=== PATIENT | male | born 1965 | race Caucasian/White ===

== ENCOUNTER 2021-05-18 10:52 | Emergency (ER) | payer OTHER ==
[2021-05-18] MEDS ORDERED: Sodium Chloride 0.9% 1000 ML 1,000 ML IV SCH (11:00)
[2021-05-18] MEDS ORDERED: NARCAN 2 MG/2 ML IV ONE (11:01)
[2021-05-18] MEDS ORDERED: Versed 50 MG/ 10 Ml MDV*** 50 MG in Sodium Chloride 0.9% 250 ML 240 ML IV PRN (11:02)
[2021-05-18] MEDS ORDERED: Sodium Chloride 0.9% 1000 ML 1,000 ML ONE ×2 (11:05→11:33)
[2021-05-18] MEDS ORDERED: Sodium Chloride 0.9% 1000 ML 1,000 ML IV STA (11:05)
[2021-05-18 11:13] LABS: Hematocrit 13.8 % (42-50); Mean Cell Volume 80.7 fl (78-100); Mean Corpuscular Hemoglobin 26.9 pg (26-32); Mean Corpuscular Hgb Concent. 33.3 g/dl (32-36); Mean Platelet Volume 8.2 fl (7.5-11.0); Platelet Count 478 K/mm3 (150-450); Red Cell Distribution Width 14.5 % (11.5-14.0); White Blood Count 13.3 K/mm3 (4.0-10.5)
[2021-05-18] MEDS ORDERED: SODIUM BICARBONATE 50 MEQ/50 ML ABBOJECT IV ONE (11:16)
[2021-05-18 11:18] LABS: Hemoglobin 4.6 gm/dl (12.5-18.0)
[2021-05-18 11:19] LABS: VBG BASE EXCESS -25.7 (-2.0-2.0); VBG CARBOXYHEMOGLOBIN 3.6 % T HGB (0.0-6.9); VBG HCO3- 5.6 meq/L (22-28); VBG O2 SATURATION 98.8 (95-100); VBG pH 6.94 (7.32-7.42)
[2021-05-18 11:19] LABS: Red Blood Count 1.71 M/mm3 (4.1-5.6)
[2021-05-18 11:20] LABS: VBG HEMOGLOBIN 4.9; VBG POTASSIUM 6.6 (3.5-5.1)
[2021-05-18 11:22] LABS: Appearance SLIGHTLY CLOUDY (CLEAR); Bilirubin NEGATIVE (NEGATIVE); Blood MODERATE Ery/ul (0-5); Epithelial Cells RARE /HPF (FEW); Glucose 50 mg/dL (NEGATIVE); Ketones NEGATIVE (NEGATIVE); Leukocyte Esterase NEGATIVE (NEGATIVE); Nitrite NEGATIVE (NEGATIVE); Protein,Urine Dip >=500 (Negative); Urobilinogen NEGATIVE mg/dL (0-1); WBC 0-2 /HPF (0-5)
[2021-05-18 11:23] LABS: ACETAMINOPHEN < 10 ug/ml (10-30); ALBUMIN 3.6 g/dL (3.5-5.0); ALKALINE PHOSPHATASE 74 U/L (38-126); CHLORIDE 107 mmol/L (98-107); Calcium 8.4 mg/dL (8.4-10.2); ETHYL ALCOHOL < 10 mg/dL (0-10); Glucose 80 mg/dL (74-106); SALICYLATE < 1.0 mg/dL (2-20); SGOT/AST 25 U/L (17-59); SGPT/ALT 16 U/L (0-50); SODIUM 137 mmol/L (137-145); Total Protein 7.5 g/dL (6.3-8.2)
[2021-05-18 11:32] LABS: Amphetamine,Urine NEGATIVE (NEGATIVE); Barbiturate,Urine NEGATIVE (NEGATIVE); Benzodiazepine,Urine NEGATIVE (NEGATIVE); Cocaine,Urine NEGATIVE (NEGATIVE); Methadone,Urine NEGATIVE (NEGATIVE); Opiate,Urine NEGATIVE (NEGATIVE); PCP,Urine NEGATIVE (NEGATIVE); THC,Urine NEGATIVE (NEGATIVE)
--- NOTE | 2021-05-18 11:33 | XRAY ---
Indication: Endotracheal tube placement. Comparison: None Portable chest demonstrates endotracheal tube tip 6 cm above sadi and NGT tip in proximal stomach just past GE junction. Lungs demonstrate prominent bilateral interstitial opacities and small left base effusion/atelectasis. Heart not enlarged. Bony thorax intact with mild degenerative changes.
[2021-05-18 11:38] LABS: Potassium 6.2 mmol/L (3.5-5.1)
[2021-05-18 11:39] LABS: BLOOD UREA NITROGEN 191 mg/dL (9-20); Carbon Dioxide < 5 mmol/L (22-30); Creatinine 1 27.24 mg/dL (0.66-1.25); EST GLOMERULAR FILTRATION RATE 1.8 ML/MIN
[2021-05-18 11:43] LABS: INR 1.14 (0.8-3.0); PROTIME 13.5 SECONDS (9.4-12.5)
[2021-05-18 11:45] LABS: PTT 29.1 SECONDS (25.1-36.5)
--- NOTE | 2021-05-18 11:53 | XRAY ---
Indication: Unresponsive. Multiple contiguous images obtained through the head without contrast. Comparison: None Age-appropriate global atrophy with mild periventricular degenerative micro-ischemia bilaterally. Left mid centrum semiovale demonstrates 5 x 13 mm hypodensity without mass effect favoring old infarct. No acute intracranial hemorrhage, abnormal extra-axial fluid collection, or mass effect. Fourth ventricle is midline without hydrocephalus. Bony calvarium intact. Mild mucosal thickening both ethmoid sinuses. Mastoid air cells are clear. Impression: 1. Normal aging atrophy and degenerative micro-ischemia. 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 2. No acute intracranial abnormalities. 3. Incidental paranasal sinus disease.
[2021-05-18 12:18] VITALS: O2SAT 100
[2021-05-18 13:20] LABS: ABO TYPING A; Antibody Screen NEGATIVE (NEGATIVE); RH TYPING POSITIVE
[2021-05-18 13:22] LABS: CROSS MATCH (PRBC) COMPATIBLE (COMPATIBLE)
[2021-05-18] MEDS ORDERED: Calcium Gluconate 10% 1000 MG IV ONE ×2 (13:58→14:49)
[2021-05-18] MEDS ORDERED: HUMULIN R IV ONE (14:00)
[2021-05-18] MEDS ORDERED: D50W 50 ml Abboject IV ONE ×2 (14:01→14:51)
--- NOTE | 2021-05-18 14:05 | XRAY ---
Indication: Unresponsive anemia. Multiple contiguous axial images obtained through the abdomen and pelvis without contrast. Comparison: None Respiration artifact and beam artifact from patient arms limits exam. Lung bases demonstrates incompletely visualized small left and tiny right effusions with compressive atelectasis. Indeterminant 7 mm right lower lobe noncalcified nodule. Heart borderline enlarged. NG tube tip at the GE junction. Stomach is moderately distended with air/fluid. Noncontrasted stomach and bowel loops appear nonobstructed. Normal appendix. Urinary bladder is near empty with Wheatley balloon catheter in situ. Remaining liver, gallbladder, pancreas, spleen, adrenal glands, kidneys, and ureters are unremarkable for noncontrast exam. Minimal aortoiliac calcifications without AAA. Osseous structures intact with mild/moderate multilevel thoracolumbar degenerative spondylosis and 7-8mm L4 spondylolisthesis. Impression: 1. Respiration and beam artifact. 2. Small left and tiny right lung base effusions with compressive atelectasis. 3. NG tube tip at GE junction and Wheatley balloon catheter in urinary bladder. 4. Multilevel degenerative spondylosis and grade 1 L4 spondylolisthesis. 5. Indeterminant 1 cm right lung base noncalcified nodule. 6. Remaining CT abdomen/pelvis without contrast exam is negative.
[2021-05-18 14:29] LABS: COVID AG -BINAX NOW RAPID TEST NEGATIVE (NEGATIVE)
--- NOTE | 2021-05-18 14:43 | ERPHSYRPT ---
- History of Present Illness Time Seen by Provider: 05/18/21 11:05 Patient Subjective Stated Complaint: Unresponsive Triage Nursing Assessment: Patient arrived per EMS at 1051 per EMS and transferred to bed with assist of 4. Patient unresponsive with IGel in place being bagged per BVM. EMS was called out for difficulty of breathing to [facility]. 10:56 I gel pulled bagging per RT, 1057: Intubated 24 @ lip, 7.5 tube end tidal CO2 25. 1100: F/C placed; Placed on vent 500 tidal volume, 14 rate, 100% O2, 5 peep. Pupils 4 fixed and non reactive. Physician History: Patient is a 55-year-old male who presents by ambulance from the [facility] the initial call from the facility to EMS was that he was having trouble breathing when they arrived they were told he had had some seizure activity and stopped breathing and they were bagging him. He has a history of seizures. Other history is difficult to find. Allergies/Adverse Reactions: No Known Drug Allergies Allergy (Unverified 05/18/21 11:10) Hx Tetanus, Diphtheria Vaccination/Date Given: (unknown) Hx Influenza Vaccination/Date Given: (unknown) Hx Pneumococcal Vaccination/Date Given: (unknown) Immunizations Up to Date: (unknown) Travel Risk - International Travel Have you traveled outside of the country in past 3 weeks: No - Coronavirus Screening Symptoms: Shortness of Breath - Vaccine Status Have you recieved a Covid-19 vaccination: Yes Film Spooler: [place] - Vaccination Dates Date of 2cond Vaccination (if applicable): 01/10/2021 - Review of Systems All Other Systems: Unable due to condition - Past Medical History Other Medical History: unknown medical hx; poor historian - Past Surgical History Other Surgical History: unknown surgeries; poor historian - Social History Smoking Status: Unknown if ever smoked Exposure to second hand smoke: No Patient Lives Alone: No (Jail) - Nursing Vital Signs Nursing Vital Signs: Initial Vital Signs Pulse Rate 102 H 05/18/21 11:00 Blood Pressure 103/62 05/18/21 11:00 O2 Sat by Pulse Oximetry 100 05/18/21 11:00 Pain Scale Pain Intensity 0 - Physical Exam General Appearance: other (Patient is totally unresponsive Tete Coma Scale of 3) Eye Exam: other (Pupils are basically 4 mm and minimally reactive extraocular motion is intact) Ears, Nose, Throat Exam: normal ENT inspection, TMs normal, pharynx normal, moist mucous membranes, other (Patient is intubated and being ventilated) Neck Exam: normal inspection, non-tender, supple, full range of motion Respiratory Exam: normal breath sounds, lungs clear, No respiratory distress Cardiovascular Exam: regular rate/rhythm, normal heart sounds, normal peripheral pulses Back Exam: normal inspection, normal range of motion, No CVA tenderness, No vertebral tenderness Extremity Exam: normal inspection, normal range of motion, pelvis stable Neurologic Exam: other (Patient is totally unresponsive) SpO2 Interpretation: airway management int. SpO2: 100 O2 Delivery: Ventilator - Course Nursing assessment & vital signs reviewed: Yes - Radiology Exams Chest X-ray Interpretation: Interpreted by me (Chest film indicates proper placement of the ET tube and some faint opacities in the lungs interstitial tissue in the lower lungs.) - CT Exams Head CT Interpretation: Other (CT shows only chronic changes and age-related changes) Abdomen/Pelvis CT Interpretation: Tele-radiologist Report Ordered Tests: Active Orders 24 hr Category Date Time Status CO2 Monitoring STAT Care 05/18/21 11:34 Active Ginger Farmer STAT Care 05/18/21 10:55 Active EKG-ER Only STAT Care 05/18/21 10:54 Active IV Insertion STAT Care 05/18/21 11:22 Active ABDOMEN AND PELVIS W/0 CONTRAS [CT] Stat Exams 05/18/21 12:07 Completed CHEST 1 VIEW (PORTABLE) Stat Exams 05/18/21 10:58 Completed HEAD WITHOUT CONTRAST [CT] Stat Exams 05/18/21 10:55 Completed ACETAMINOPHEN Stat Lab 05/18/21 11:00 Completed BLOOD CULTURE Stat Lab 05/18/21 11:00 Ordered BMP/RENAL PROFILE Stat Lab 05/18/21 14:34 Ordered CBC W DIFF Stat Lab 05/18/21 11:00 Completed CMP Stat Lab 05/18/21 11:00 Completed CULTURE,URINE Stat Lab 05/18/21 11:08 Ordered D-DIMER QUANTITATIVE Stat Lab 05/18/21 11:00 Completed ETHYL ALCOHOL Stat Lab 05/18/21 11:00 Completed Lactic Acid Urgent Lab 05/18/21 11:18 Completed Manual Differential NC Stat Lab 05/18/21 11:00 Completed PROTIME WITH INR Stat Lab 05/18/21 11:25 Completed PTT Stat Lab 05/18/21 11:25 Completed SALICYLATE Stat Lab 05/18/21 11:00 Completed UA W/RFX UR CULTURE Stat Lab 05/18/21 11:08 Completed Urine Triage Profile Stat Lab 05/18/21 11:08 Completed VBG [VENOUS BLOOD GAS] Stat Lab 05/18/21 11:17 Completed Intubate Patient STAT RT 05/18/21 11:34 Active Respiratory Therapy Assessment DAILY RT 05/18/21 11:34 Active Ventilator Management Q4H RT 05/18/21 11:34 Active Medication Summary Generic Name Dose Route Start Last Admin Trade Name Freq PRN Reason Stop Dose Admin Sodium Chloride 1,000 mls @ 100 mls/hr 05/18/21 11:00 05/18/21 11:34 Sodium Chloride 0.9% 1000 Ml IV 06/17/21 10:59 100 mls/hr .Q10H MARY Administration Midazolam HCl 50 mg/ Sodium 250 mls @ 10 mls/hr 05/18/21 11:02 05/18/21 11:05 Chloride IV 06/17/21 11:01 2 mg/hr .Q24H PRN 10 mls/hr SEDATION Administration Protocol 2 MG/HR Discontinued Medications Generic Name Dose Route Start Last Admin Trade Name Freq PRN Reason Stop Dose Admin Calcium Gluconate 1,000 mg 05/18/21 13:58 Calcium Gluconate 10% 1000 Mg IV 05/18/21 13:59 STAT ONE Dextrose 50 ml 05/18/21 14:01 D50w 50 Ml Abboject IV 05/18/21 14:02 STAT ONE Sodium Chloride 1,000 mls @ 999 mls/hr 05/18/21 11:05 05/18/21 12:19 Sodium Chloride 0.9% 1000 Ml IV 05/18/21 12:05 Infused .Q1H1M STA Infusion Insulin Human Regular 10 unit 05/18/21 14:00 Humulin R IV 05/18/21 14:01 STAT ONE Naloxone HCl 2 mg 05/18/21 11:01 05/18/21 11:03 Narcan 2 Mg/2 Ml IV 05/18/21 11:02 2 mg STAT ONE Administration Sodium Bicarbonate 50 meq 05/18/21 11:16 05/18/21 11:19 Sodium Bicarbonate 50 Meq/50 Ml Abboject IV 05/18/21 11:17 50 meq STAT ONE Administration Lab/Rad Data: Laboratory Result Diagrams 05/18/21 11:00 05/18/21 11:00 Laboratory Results 05/18/21 05/18/21 05/18/21 Range/Units 14:05 11:25 11:25 WBC (4.0-10.5) K/mm3 RBC (4.1-5.6) M/mm3 Hgb (12.5-18.0) gm/dl Hct (42-50) % MCV (78-100) fl MCH (26-32) pg MCHC (32-36) g/dl RDW (11.5-14.0) % Plt Count (150-450) K/mm3 MPV (7.5-11.0) fl PT (9.4-12.5) SECONDS INR (0.8-3.0) APTT (25.1-36.5) SECONDS D-Dimer (215-500) ng/mL pO2/FiO2 Ratio % VBG pH (7.32-7.42) VBG pCO2 at Pat Temp (42-55) mm/Hg VBG pO2 at Pat Temp (25-40) mm/Hg VBG HCO3 (22-28) meq/L VBG O2 Sat ([place]) (95-100) VBG Base Excess (-2.0-2.0) VBG Hemoglobin VBG Carboxyhemoglobin (0.0-6.9) % T HGB POC Potassium (3.5-5.1) Sodium (137-145) mmol/L Potassium (3.5-5.1) mmol/L Chloride (98-107) mmol/L Carbon Dioxide (22-30) mmol/L BUN (9-20) mg/dL Creatinine (0.66-1.25) mg/dL Estimated GFR ML/MIN Glucose (74-106) mg/dL Lactic Acid (0.4-2.0) Calcium (8.4-10.2) mg/dL Total Bilirubin (0.2-1.3) mg/dL AST (17-59) U/L ALT (0-50) U/L Alkaline Phosphatase (38-126) U/L Serum Total Protein (6.3-8.2) g/dL Albumin (3.5-5.0) g/dL Urine Color (YELLOW) Urine Appearance (CLEAR) Urine pH (5-6) Ur Specific [place] (1.005-1.025) Urine Protein (Negative) Urine Ketones (NEGATIVE) Urine Blood (0-5) [place]/ul Urine Nitrite (NEGATIVE) Urine Bilirubin (NEGATIVE) Urine Urobilinogen (0-1) mg/dL Ur Leukocyte Esterase (NEGATIVE) Urine WBC (Auto) (0-5) /HPF Urine RBC (Auto) (0-2) /HPF U Epithel Cells (Auto) (FEW) /HPF Urine Bacteria (Auto) (NEGATIVE) /HPF Urine Culture Reflexed (NO) Urine Glucose (NEGATIVE) mg/dL Salicylates (2-20) mg/dL Urine Opiates Level (NEGATIVE) Ur Methadone (NEGATIVE) Acetaminophen (10-30) ug/ml Urine Barbiturates (NEGATIVE) Ur Phencyclidine (PCP) (NEGATIVE) Urine Amphetamine (NEGATIVE) U Benzodiazepine Level (NEGATIVE) Urine Cocaine (NEGATIVE) Urine Marijuana (THC) (NEGATIVE) Ethyl Alcohol (0-10) mg/dL SARS-CoV-2 Ag (Rapid) NEGATIVE (NEGATIVE) ABO Group Rh Factor Antibody Screen (NEGATIVE) Crossmatch COMPATIBLE COMPATIBLE (COMPATIBLE) 05/18/21 05/18/21 05/18/21 Range/Units 11:25 11:25 11:25 WBC (4.0-10.5) K/mm3 RBC (4.1-5.6) M/mm3 Hgb (12.5-18.0) gm/dl Hct (42-50) % MCV (78-100) fl MCH (26-32) pg MCHC (32-36) g/dl RDW (11.5-14.0) % Plt Count (150-450) K/mm3 MPV (7.5-11.0) fl PT (9.4-12.5) SECONDS INR (0.8-3.0) APTT (25.1-36.5) SECONDS D-Dimer (215-500) ng/mL pO2/FiO2 Ratio % VBG pH (7.32-7.42) VBG pCO2 at Pat Temp (42-55) mm/Hg VBG pO2 at Pat Temp (25-40) mm/Hg VBG HCO3 (22-28) meq/L VBG O2 Sat ([place]) (95-100) VBG Base Excess (-2.0-2.0) VBG Hemoglobin VBG Carboxyhemoglobin (0.0-6.9) % T HGB POC Potassium (3.5-5.1) Sodium (137-145) mmol/L Potassium (3.5-5.1) mmol/L Chloride (98-107) mmol/L Carbon Dioxide (22-30) mmol/L BUN (9-20) mg/dL Creatinine (0.66-1.25) mg/dL Estimated GFR ML/MIN Glucose (74-106) mg/dL Lactic Acid (0.4-2.0) Calcium (8.4-10.2) mg/dL Total Bilirubin (0.2-1.3) mg/dL AST (17-59) U/L ALT (0-50) U/L Alkaline Phosphatase (38-126) U/L Serum Total Protein (6.3-8.2) g/dL Albumin (3.5-5.0) g/dL Urine Color (YELLOW) Urine Appearance (CLEAR) Urine pH (5-6) Ur Specific [place] (1.005-1.025) Urine Protein (Negative) Urine Ketones (NEGATIVE) Urine Blood (0-5) [place]/ul Urine Nitrite (NEGATIVE) Urine Bilirubin (NEGATIVE) Urine Urobilinogen (0-1) mg/dL Ur Leukocyte Esterase (NEGATIVE) Urine WBC (Auto) (0-5) /HPF Urine RBC (Auto) (0-2) /HPF U Epithel Cells (Auto) (FEW) /HPF Urine Bacteria (Auto) (NEGATIVE) /HPF Urine Culture Reflexed (NO) Urine Glucose (NEGATIVE) mg/dL Salicylates (2-20) mg/dL Urine Opiates Level (NEGATIVE) Ur Methadone (NEGATIVE) Acetaminophen (10-30) ug/ml Urine Barbiturates (NEGATIVE) Ur Phencyclidine (PCP) (NEGATIVE) Urine Amphetamine (NEGATIVE) U Benzodiazepine Level (NEGATIVE) Urine Cocaine (NEGATIVE) Urine Marijuana (THC) (NEGATIVE) Ethyl Alcohol (0-10) mg/dL SARS-CoV-2 Ag (Rapid) (NEGATIVE) ABO Group Rh Factor Antibody Screen (NEGATIVE) Crossmatch COMPATIBLE COMPATIBLE COMPATIBLE (COMPATIBLE) 05/18/21 05/18/21 05/18/21 Range/Units 11:25 11:25 11:18 WBC (4.0-10.5) K/mm3 RBC (4.1-5.6) M/mm3 Hgb (12.5-18.0) gm/dl Hct (42-50) % MCV (78-100) fl MCH (26-32) pg MCHC (32-36) g/dl RDW (11.5-14.0) % Plt Count (150-450) K/mm3 MPV (7.5-11.0) fl PT 13.5 H (9.4-12.5) SECONDS INR 1.14 (0.8-3.0) APTT 29.1 (25.1-36.5) SECONDS D-Dimer (215-500) ng/mL pO2/FiO2 Ratio % VBG pH (7.32-7.42) VBG pCO2 at Pat Temp (42-55) mm/Hg VBG pO2 at Pat Temp (25-40) mm/Hg VBG HCO3 (22-28) meq/L VBG O2 Sat ([place]) (95-100) VBG Base Excess (-2.0-2.0) VBG Hemoglobin VBG Carboxyhemoglobin (0.0-6.9) % T HGB POC Potassium (3.5-5.1) Sodium (137-145) mmol/L Potassium (3.5-5.1) mmol/L Chloride (98-107) mmol/L Carbon Dioxide (22-30) mmol/L BUN (9-20) mg/dL Creatinine (0.66-1.25) mg/dL Estimated GFR ML/MIN Glucose (74-106) mg/dL Lactic Acid 2.9 H (0.4-2.0) Calcium (8.4-10.2) mg/dL Total Bilirubin (0.2-1.3) mg/dL AST (17-59) U/L ALT (0-50) U/L Alkaline Phosphatase (38-126) U/L Serum Total Protein (6.3-8.2) g/dL Albumin (3.5-5.0) g/dL Urine Color (YELLOW) Urine Appearance (CLEAR) Urine pH (5-6) Ur Specific [place] (1.005-1.025) Urine Protein (Negative) Urine Ketones (NEGATIVE) Urine Blood (0-5) [place]/ul Urine Nitrite (NEGATIVE) Urine Bilirubin (NEGATIVE) Urine Urobilinogen (0-1) mg/dL Ur Leukocyte Esterase (NEGATIVE) Urine WBC (Auto) (0-5) /HPF Urine RBC (Auto) (0-2) /HPF U Epithel Cells (Auto) (FEW) /HPF Urine Bacteria (Auto) (NEGATIVE) /HPF Urine Culture Reflexed (NO) Urine Glucose (NEGATIVE) mg/dL Salicylates (2-20) mg/dL Urine Opiates Level (NEGATIVE) Ur Methadone (NEGATIVE) Acetaminophen (10-30) ug/ml Urine Barbiturates (NEGATIVE) Ur Phencyclidine (PCP) (NEGATIVE) Urine Amphetamine (NEGATIVE) U Benzodiazepine Level (NEGATIVE) Urine Cocaine (NEGATIVE) Urine Marijuana (THC) (NEGATIVE) Ethyl Alcohol (0-10) mg/dL SARS-CoV-2 Ag (Rapid) (NEGATIVE) ABO Group A Rh Factor POSITIVE Antibody Screen NEGATIVE (NEGATIVE) Crossmatch COMPATIBLE (COMPATIBLE) 05/18/21 05/18/21 05/18/21 Range/Units 11:17 11:08 11:08 WBC (4.0-10.5) K/mm3 RBC (4.1-5.6) M/mm3 Hgb (12.5-18.0) gm/dl Hct (42-50) % MCV (78-100) fl MCH (26-32) pg MCHC (32-36) g/dl RDW (11.5-14.0) % Plt Count (150-450) K/mm3 MPV (7.5-11.0) fl PT (9.4-12.5) SECONDS INR (0.8-3.0) APTT (25.1-36.5) SECONDS D-Dimer (215-500) ng/mL pO2/FiO2 Ratio 100.0 % VBG pH 6.94 L* (7.32-7.42) VBG pCO2 at Pat Temp 26 L (42-55) mm/Hg VBG pO2 at Pat Temp 211 H (25-40) mm/Hg VBG HCO3 5.6 L* (22-28) meq/L VBG O2 Sat ([place]) 98.8 (95-100) VBG Base Excess -25.7 L (-2.0-2.0) VBG Hemoglobin 4.9 L* VBG Carboxyhemoglobin 3.6 (0.0-6.9) % T HGB POC Potassium 6.6 H* (3.5-5.1) Sodium (137-145) mmol/L Potassium (3.5-5.1) mmol/L Chloride (98-107) mmol/L Carbon Dioxide (22-30) mmol/L BUN (9-20) mg/dL Creatinine (0.66-1.25) mg/dL Estimated GFR ML/MIN Glucose (74-106) mg/dL Lactic Acid (0.4-2.0) Calcium (8.4-10.2) mg/dL Total Bilirubin (0.2-1.3) mg/dL AST (17-59) U/L ALT (0-50) U/L Alkaline Phosphatase (38-126) U/L Serum Total Protein (6.3-8.2) g/dL Albumin (3.5-5.0) g/dL Urine Color YELLOW (YELLOW) Urine Appearance SLIGHTLY CLOUDY (CLEAR) Urine pH 5.0 (5-6) Ur Specific [place] 1.010 (1.005-1.025) Urine Protein >=500 (Negative) Urine Ketones NEGATIVE (NEGATIVE) Urine Blood MODERATE (0-5) [place]/ul Urine Nitrite NEGATIVE (NEGATIVE) Urine Bilirubin NEGATIVE (NEGATIVE) Urine Urobilinogen NEGATIVE (0-1) mg/dL Ur Leukocyte Esterase NEGATIVE (NEGATIVE) Urine WBC (Auto) 0-2 (0-5) /HPF Urine RBC (Auto) 11-15 (0-2) /HPF U Epithel Cells (Auto) RARE (FEW) /HPF Urine Bacteria (Auto) NONE (NEGATIVE) /HPF Urine Culture Reflexed ALREADY ORDERED (NO) Urine Glucose 50 (NEGATIVE) mg/dL Salicylates (2-20) mg/dL Urine Opiates Level NEGATIVE (NEGATIVE) Ur Methadone NEGATIVE (NEGATIVE) Acetaminophen (10-30) ug/ml Urine Barbiturates NEGATIVE (NEGATIVE) Ur Phencyclidine (PCP) NEGATIVE (NEGATIVE) Urine Amphetamine NEGATIVE (NEGATIVE) U Benzodiazepine Level NEGATIVE (NEGATIVE) Urine Cocaine NEGATIVE (NEGATIVE) Urine Marijuana (THC) NEGATIVE (NEGATIVE) Ethyl Alcohol (0-10) mg/dL SARS-CoV-2 Ag (Rapid) (NEGATIVE) ABO Group Rh Factor Antibody Screen (NEGATIVE) Crossmatch (COMPATIBLE) 05/18/21 05/18/21 05/18/21 Range/Units 11:00 11:00 11:00 WBC 13.3 H (4.0-10.5) K/mm3 RBC 1.71 L* (4.1-5.6) M/mm3 Hgb 4.6 L* (12.5-18.0) gm/dl Hct 13.8 L (42-50) % MCV 80.7 (78-100) fl MCH 26.9 (26-32) pg MCHC 33.3 (32-36) g/dl RDW 14.5 H (11.5-14.0) % Plt Count 478 H (150-450) K/mm3 MPV 8.2 (7.5-11.0) fl PT (9.4-12.5) SECONDS INR (0.8-3.0) APTT (25.1-36.5) SECONDS D-Dimer 34819 H* (215-500) ng/mL pO2/FiO2 Ratio % VBG pH (7.32-7.42) VBG pCO2 at Pat Temp (42-55) mm/Hg VBG pO2 at Pat Temp (25-40) mm/Hg VBG HCO3 (22-28) meq/L VBG O2 Sat ([place]) (95-100) VBG Base Excess (-2.0-2.0) VBG Hemoglobin VBG Carboxyhemoglobin (0.0-6.9) % T HGB POC Potassium (3.5-5.1) Sodium 137 (137-145) mmol/L Potassium 6.2 H* (3.5-5.1) mmol/L Chloride 107 (98-107) mmol/L Carbon Dioxide < 5 L* (22-30) mmol/L BUN 191 H (9-20) mg/dL Creatinine 27.24 H (0.66-1.25) mg/dL Estimated GFR 1.8 ML/MIN Glucose 80 (74-106) mg/dL Lactic Acid (0.4-2.0) Calcium 8.4 (8.4-10.2) mg/dL Total Bilirubin 0.40 (0.2-1.3) mg/dL AST 25 (17-59) U/L ALT 16 (0-50) U/L Alkaline Phosphatase 74 (38-126) U/L Serum Total Protein 7.5 (6.3-8.2) g/dL Albumin 3.6 (3.5-5.0) g/dL Urine Color (YELLOW) Urine Appearance (CLEAR) Urine pH (5-6) Ur Specific [place] (1.005-1.025) Urine Protein (Negative) Urine Ketones (NEGATIVE) Urine Blood (0-5) [place]/ul Urine Nitrite (NEGATIVE) Urine Bilirubin (NEGATIVE) Urine Urobilinogen (0-1) mg/dL Ur Leukocyte Esterase (NEGATIVE) Urine WBC (Auto) (0-5) /HPF Urine RBC (Auto) (0-2) /HPF U Epithel Cells (Auto) (FEW) /HPF Urine Bacteria (Auto) (NEGATIVE) /HPF Urine Culture Reflexed (NO) Urine Glucose (NEGATIVE) mg/dL Salicylates < 1.0 L (2-20) mg/dL Urine Opiates Level (NEGATIVE) Ur Methadone (NEGATIVE) Acetaminophen < 10 L (10-30) ug/ml Urine Barbiturates (NEGATIVE) Ur Phencyclidine (PCP) (NEGATIVE) Urine Amphetamine (NEGATIVE) U Benzodiazepine Level (NEGATIVE) Urine Cocaine (NEGATIVE) Urine Marijuana (THC) (NEGATIVE) Ethyl Alcohol < 10 (0-10) mg/dL SARS-CoV-2 Ag (Rapid) (NEGATIVE) ABO Group Rh Factor Antibody Screen (NEGATIVE) Crossmatch (COMPATIBLE) - Progress Progress: unchanged - Departure Departure Disposition: Transfer Clinical Impression: Acute renal failure, Severe anemia, Acidosis, Hyperkalemia, Respiratory arrest Condition: Critical Critical Care Time: Yes Critical Care Time(excluding separately billable procedures): Critcal > 194 mins Referrals: DOCTOR,NO FAMILY [Primary Care Provider] - (Patient was referred to Dr. Roldan at [facility] who intervened to help us obtain an ICU bed which are included critical short supply.)
[2021-05-18] MEDS ORDERED: HUMULIN R ONE (14:50)
[2021-05-18 15:16] LABS: ALBUMIN 3.8 g/dL (3.5-5.0); ANION GAP 30.6 MEQ/L (5-15); Calcium 8.5 mg/dL (8.4-10.2); PHOSPHOROUS 12.2 mg/dL (2.5-4.5)
[2021-05-18 15:25] LABS: Creatinine 1 26.73 mg/dL (0.66-1.25); EST GLOMERULAR FILTRATION RATE 1.9 ML/MIN; Potassium 6.8 mmol/L (3.5-5.1)
[2021-05-18 15:46] LABS: Hematocrit 21.8 % (42-50)
[2021-05-18 16:27] VITALS: BP 132/92; PULSE 85
[2021-05-18 19:52] LABS: Eosinophil 1 % (0.00-3.0); Lymphocytes 5 % (24-44); Monocyte 1 % (0.0-12.0); Neutrophils 93 % (36.-66.); Platelet Estimate INCREASED (NORMAL); Total Cells Counted 100
[2021-05-18 19:53] LABS: Microcytosis 1+; Tear Drop Cells 1+
== END 2021-05-18 17:07 | disposition short-term general hospital (02) ==
LOC: ED 10:52
DX: R09.2 Respiratory arrest (principal); E87.5 Hyperkalemia; E87.2 Acidosis; D64.9 Anemia, unspecified; N17.9 Acute kidney failure, unspecified; R56.9 Unspecified convulsions; Z20.822 Contact with and (suspected) exposure to COVID-19
CPT/HCPCS: 31500; 36000; 36415; 36430; 70450; 71045; 74176; 80048; 80053; 80307; 81001; 82040; 82805; 83605; 84100; 85014; 85018; 85025; 85379; 85610; 85730; 86850; 86900; 86901; 86922; 87040; 87086; 93005; 93041; 94002; 96360; 96374; 96375; 99000; 99285; 99291; 99292; P9016; J0610; J1815; J2250; J2310; G0480